=== PATIENT | female | born 1950 | race Caucasian/White ===

== ENCOUNTER 2018-02-09 10:23 | Day surgery (SDC) | END 2018-02-09 15:42 | disposition home or self-care (01) ==

== ENCOUNTER 2018-09-15 09:33 | Day surgery (SDC) | payer OTHER ==
[~2018-09-15] VITALS: Ht 149.9 cm; Wt 56.6 kg
[2018-09-15] VITALS (14 sets, daily range): BP systolic 91–141; BP diastolic 5–65; PULSE 59–64; RESP 14–22; Ht 149.9 cm; Wt 56.6 kg
[~2018-09-15 09:33] MED LIST: AMIT10TA6 PO; ASPI81TA52 PO; ATOR10TA65 PO; CALC667C PO; DOCU-159 PO; INSU100I12 SQ; LABE100T7 PO; LANT3I SC; LISI-471 PO; NIFE30TA23 PO
[2018-09-15] MEDS ORDERED: NEPH PO (10:12)
[2018-09-15] MEDS ORDERED: LABE200T25 PO (10:12)
[2018-09-15] MEDS ORDERED: AMLO-147 PO (10:13)
[2018-09-15] MEDS ORDERED: BUPIVACAINE 0.5% (SDV) 30 ML INJ ONE (11:26)
[2018-09-15] MEDS ORDERED: GELATIN SIZE 100 SPONGE ONE (11:26)
[2018-09-15] MEDS ORDERED: LIDOCAINE 1% (MPF) 30 ML INJ ONE (11:26)
[2018-09-15] MEDS ORDERED: THROMBIN 5000 UNIT VIAL ONE (11:26)
[2018-09-15] MEDS ORDERED: HEPARIN 1000 UNITS/ML 10 ML INJ ONE ×2 (11:26→14:33)
[2018-09-15] MEDS ORDERED: SOD CHLORIDE 0.9% 500 ML IV SCH (11:30)
--- NOTE | 2018-09-15 11:49 | PREAC ---
Date/Time of Note Date/Time of Note DATE: 09/15/18 TIME: 11:48 Anesthesia Eval and Record Evaluation Time Pre-Procedure Interview DATE: 09/15/18 TIME: 11:48 Age 68 Sex female NPO: 8 hrs Preoperative diagnosis ESRD Planned procedure L AVF transposition Past Medical History Past Medical History: Includes Cardio: HTN, Dyslipidemia Endo: Diabetes Musculoskeletal: Osteoarthritis Renal: CKD, ESRD on dialysis, HD last: (yesterday) Heme: Anemia Surgery & Anesthesia Issues No known issue Meds Anticoagulation: No Beta Otilia within 24 hr: No Reason Beta Otilia not given: Pt. not on B-Otilia Reported Medications Amlodipine Besylate* (Amlodipine Besylate*) 10 Mg Tablet, 10 MG PO DAILY, #30 TAB 09/15/18 Labetalol Hcl* (Labetalol Hcl*) 200 Mg Tablet, 200 MG PO TID, TAB 09/15/18 Multivit/Ca Carb/B Cmplx/Fa* (Shannan-Shoshana*) 1 Tab Tab, 1 TAB PO DAILY, TAB 09/15/18 Nifedipine* (Nifedipine ER*) 30 Mg Tablet.sa, 30 MG PO DAILY, TAB.SA 02/09/18 Insulin Glargine* (Lantus*) 100 Unit/Ml Soln, 10 UNIT SC QHS, #1 VIAL MAY INCREASE 2 UNITS EVERY WEEK FOR BLOOD SUGAR < 130 NEEDED 02/09/18 Insulin Lispro (Humalog Kwikpen U-100) 100 Unit/1 Ml Insuln.pen, 0 SQ AC B, EA SLIDING SCALE 02/09/18 Docusate Sodium* (Docusate Sodium*) 100 Mg Capsule, 100 MG PO QHS, #30 CAP 02/09/18 Calcium Acetate* (Calcium Acetate*) 667 Mg Capsule, 1334 MG PO WITH MEALS, #60 CAP 02/09/18 Atorvastatin Calcium (Atorvastatin Calcium) 10 Mg Tablet, 10 MG PO QHS, #30 TAB 02/09/18 Aspirin (Low Dose Aspirin) 81 Mg Tablet.dr, 81 MG PO DAILY, #30 TAB 02/09/18 Amitriptyline Hcl* (Amitriptyline Hcl*) 10 Mg Tablet, 10 MG PO QHS, #30 TAB 02/09/18 Discontinued Reported Medications Lisinopril* (Lisinopril*) 20 Mg Tablet, 20 MG PO DAILY, #30 TAB 02/09/18 Labetalol Hcl* (Labetalol Hcl*) 100 Mg Tablet, 100 MG PO BID, TAB 02/09/18 Current Medications Sodium Chloride 500 ml @ 20 mls/hr Q24H IV ; Start 09/15/18 at 11:30 Meds reviewed: Yes Allergies Coded Allergies: No Known Allergy (Unverified , 09/15/18) Allergies Reviewed: Yes Labs/Studies Labs Reviewed: Reviewed by anesthesiologist Result Diagram: 09/15/18 1048 Laboratory Tests 09/15/18 10:48 test: N/A Studies: ECG Pre-procedure Exam Last vitals Vital Signs Date Temp Pulse Resp B/P (MAP) Pulse Ox O2 O2 Flow FiO2 Time Delivery Rate 09/15/18 97.9 59 16 141/65 11:04 (90) Airway: Adequate mouth opening, Adequate thyromental dist Mallampati: Mallampati II Teeth: Normal Lung: Normal Heart: Normal ASA Physical Status ASA physical status: 3 Emergency: None Planned Anesthetic General/MAC: ETT Nerve block: Brachial plexus (left) Pre-operative Attestations Prior to commencing anesthesia and surgery, the patient was re-evaluated, there was verification of: *The patient's identity *The results of appropriate recent lab work and preoperative vital signs *The above evaluation not changing prior to induction *Anesthetic plan, risk benefits, alternative and complications discussed with patient/family; questions answered; patient/family understands, accepts and wishes to proceed. BROOKLYNN COMER September 15, 2018 11:49
[2018-09-15] MEDS ORDERED: hydrALAzine 20 MG INJ IV PRN (12:00)
[2018-09-15] MEDS ORDERED: ONDANSETRON 4 MG INJ IV PRN ×2 (12:00→16:00)
[2018-09-15] MEDS ORDERED: METOCLOPRAMIDE 10 MG INJ IV PRN (12:00)
[2018-09-15] MEDS ORDERED: FENTAnyl 50 MCG/ML VIAL IV PRN ×2 (12:00)
[2018-09-15] MEDS ORDERED: HYDROmorphONE 1 MG/5 ML IV SYRINGE IV PRN ×2 (12:00)
[2018-09-15] MEDS ORDERED: LABETALOL HCL 20MG INJ IV PRN (12:00)
[2018-09-15] MEDS ORDERED: DIPHENHYDRAMINE 50 MG INJ IV PRN (12:00)
[2018-09-15] MEDS ORDERED: LIDOCAINE 2% (SDV) 5 ML INJ ONE (13:00)
[2018-09-15] MEDS ORDERED: PROPOFOL 200 MG INJ ONE (13:00)
--- NOTE | 2018-09-15 13:12 | HPN ---
Date/Time of Note Date/Time of Note DATE: 09/15/18 TIME: 13:12 Interval H&P Admission Note Pt. seen H&P reviewed: No system changes ISIDRO FERNANDEZ MD September 15, 2018 13:12
[2018-09-15] MEDS ORDERED: ROPIVACAINE 0.5 % 30 ML VIAL ONE (13:16)
[2018-09-15] MEDS ORDERED: FENTAnyl 50 MCG/ML VIAL ONE (13:16)
[2018-09-15] MEDS ORDERED: MIDAZOLAM 1 MG/ML 2 ML INJ ONE (13:22)
[2018-09-15] MEDS ORDERED: EPHEDrine 25 MG/5 ML SYG ONE (13:48)
--- NOTE | 2018-09-15 15:34 | SIPON ---
Date/Time of Note Date/Time of Note DATE: 09/15/18 TIME: 15:34 Operative Report Preoperative Diagnosis ESRD, L hand steal syndrome Postoperative Diagnosis same Operation/Procedure Performed LUE AVF transposition with banding Surgeon see signature line environmental assistant n/a Anesthesia: MAC, other (local) Estimated blood loss: 10 - 50 ml's Transfusion Required none Specimen n/a Grafts/Implants none Complications none ISIDRO FERNANDEZ MD September 15, 2018 15:34
--- NOTE | 2018-09-15 15:43 | PAC ---
Date/Time of Note Date/Time of Note DATE: 09/15/18 TIME: 15:42 Post-Anesthesia Notes Post-Anesthesia Note Last documented vital signs Vital Signs Date Temp Pulse Resp B/P (MAP) Pulse Ox O2 O2 Flow FiO2 Time Delivery Rate 09/15/18 97.9 59 16 141/65 11:04 (90) Activity: WNL Respiratory function: WNL Cardiovascular function: WNL Mental status: Baseline Pain reasonably controlled: Yes Hydration appropriate: Yes Nausea/Vomiting absent: Yes EBONIE FERRER September 15, 2018 15:43
[2018-09-15] MEDS ORDERED: HYDROCODONE/APAP (5/325) TAB PO PRN ×2 (16:00)
--- NOTE | 2018-09-15 17:27 | OPR ---
DATE OF OPERATION: 09/15/2018 PREOPERATIVE DIAGNOSES: End-stage renal disease, left hand steal syndrome. POSTOPERATIVE DIAGNOSES: End-stage renal disease, left hand steal syndrome. PROCEDURE: 1. Left arm brachiobasilic arteriovenous fistula transposition. 2. Banding of AV fistula. SURGEON: Isidro Islas MD ANESTHESIA: Regional MAC with local. ESTIMATED BLOOD LOSS: 25 mL. SPECIMENS: None. COMPLICATIONS: None. PREOPERATIVE INDICATIONS: This is a 68-year-old female with end-stage renal disease on dialysis, who is status post a left arm brachiobasilic AV fistula stage I who is now ready for transposition. How ever, in the interim, the patient has developed steal syndrome with some numbness and pain in the fin gers of the left hand. She does not have a palpable radial pulse on exam. This does return with com pression of the fistula. Therefore, she will have likely banding of the AV fistula in addition to th e transposition. The indications, risks and benefits of the procedure were discussed with the patien t and her family, who understood and agreed to proceed. DESCRIPTION OF PROCEDURE: The patient was properly identified and brought to the operating room and placed in supine position. She received a regional block with anesthesia and was induced with MAC an esthesia throughout. She received preoperative antibiotics. The left arm was prepped and draped in the usual sterile fashion. Ultrasound was used to map out the brachiobasilic vein AV fistula with no table branching points. Two skin incisions in a longitudinal fashion was created after local anesthe evelin was injected. This was done with a 15-blade scalpel. Subcutaneous tissues were deepened through using electrocautery. The basilic vein AV fistula was then identified and circumferentially dissect ed free. Tributaries were ligated and divided accordingly. Once completely freed up, the patient wa s heparinized with 3000 units of intravenous heparin. A subcutaneous tunnel was created after local anesthesia was injected using a large aortic clamp. The fistula was then controlled and transected n ear the inflow. The fistula vein was then pulled through the incisions and flushed with heparinized saline and marked for orientation. The vein was then pulled through the tunnel tract and an end-to-e nd venous anastomosis was then recreated using two 6-0 Prolene sutures. In addition, the venous-veno us anastomosis was additionally tightened with 6-0 Prolene sutures for banding of the AV fistula. Th is was done until there was return of 1+ palpable radial pulse on exam. The suture line was complete d after the anastomosis was flushed and backbled. Hemostasis was assured. Release of the clamps dem onstrated a mix of flow with thrill and pulsatility especially at the inflow just distal to the hilary ng site. Doppler was used to evaluate the entire fistula which noted continuous flow throughout into the axillary vein. Hemostasis was assured once again. The subcutaneous tissues were closed using 2 -0 Vicryl sutures. The skin was closed in a subcuticular technique using 4-0 Monocryl. The patient tolerated the procedure well without any immediate complications and was transferred in [facility]. Dictated By: ISIDRO YAO/WILL Conf#: [id number] DID#: [id number]
--- NOTE | 2018-09-16 08:57 | RADRPT ---
Vent Rate: 67 bpm RR Interval: 900 msec DE Interval: 148 msec QRS Duration: 68 msec QT Interval: 460 msec QTC Interval: 485 msec P-R-T [place]: 42 - 51 - 34 degrees Sinus rhythm... Probable left atrial enlargement.. nonspecific T wave abn ABNORMAL ECG Electronically Signed By: Pedro Frey
== END 2018-09-15 18:16 | disposition home or self-care (01) ==
LOC: SDS 09:33
PROVIDERS: ATTEND Specialist
DX: I12.0 Hypertensive chronic kidney disease with stage 5 chronic kidney disease or end stage renal disease (principal); N18.6 End stage renal disease; E11.9 Type 2 diabetes mellitus without complications; Z79.4 Long term (current) use of insulin
CPT/HCPCS: 37607; 71045; 80053; 82962; 85610; 85730; 93005; J1644; J2250; J2795; J3010; Z7512; Z7610; C1725